=== PATIENT | female | born 1965 | race Caucasian/White ===

== ENCOUNTER 2020-08-20 06:16 | Day surgery (SDC) | payer BC, SELFPAY ==
[~2020-08-20] VITALS: Ht 177.8 cm; Wt 88.5 kg
[~2020-08-20 06:16] MED LIST: RIZA10TA21 PO
[2020-08-20] MEDS ORDERED: CEFAZOLIN SOD 1 GM in D5W 50 ML IV ONE (07:45)
[2020-08-20] MEDS ORDERED: SEVOFLURANE 15 MIN GAS INH ONE (07:50)
[2020-08-20] MEDS ORDERED: WATER FOR IRRIGATION,STERILE 1,000 ML IRRIG.SOLN IR ONE (07:50)
[2020-08-20] MEDS ORDERED: MIDAZOLAM HCL 5 MG/5 ML VIAL IVP ONE (07:50)
[2020-08-20] MEDS ORDERED: BUPIVACAINE /EPINEPHRINE/PF 0.25% 30 ML VIAL INJ ONE (07:50)
[2020-08-20] MEDS ORDERED: ONDANSETRON HCL 4 MG/2 ML VIAL IVP ONE (07:50)
[2020-08-20] MEDS ORDERED: fentaNYL CITRATE/PF 100 MCG/2 ML AMP IVP ONE (07:50)
[2020-08-20] MEDS ORDERED: PROPOFOL 200MG/ 20ML VIAL (DIPRIVAN) IV ONE (07:50)
[2020-08-20] MEDS ORDERED: KETOROLAC TROMETHAMINE 30 MG VIAL IVP ONE (07:50)
[2020-08-20] MEDS ORDERED: LR 1,000 ML IV.SOLN IV ONE (07:50)
[2020-08-20] MEDS ORDERED: HYDROmorphone 1 MG/ML INJ. CARTRIDGE IVP PRN (08:30)
[2020-08-20] MEDS ORDERED: METOCLOPRAMIDE HCL 10 MG/2 ML VIAL IVP PRN (08:30)
[2020-08-20] MEDS ORDERED: KETOROLAC TROMETHAMINE 30 MG VIAL IVP PRN (08:30)
[2020-08-20] MEDS ORDERED: OXYCODONE/ACETAMINOPHEN 5-325 TABLET PO PRN ×2 (08:45)
[2020-08-20] MEDS ORDERED: ONDANSETRON HCL 4 MG/2 ML VIAL IVP PRN (08:45)
[2020-08-20] MEDS ORDERED: HYDROcodone/ACETAMIN 5-325 MG TAB (NORCO/ VICODIN) PO PRN (08:45)
[2020-08-20 10:59] VITALS: BP_SYST 144
== END 2020-08-20 10:30 | disposition home or self-care (01) ==
LOC: SDS 06:16 → SMU 06:16 → SDS 10:30
PROVIDERS: ATTEND Specialist
DX: N75.0 Cyst of Bartholin's gland (principal); R10.2 Pelvic and perineal pain; N95.1 Menopausal and female climacteric states; Z79.899 Other long term (current) drug therapy; Z20.822 Contact with and (suspected) exposure to COVID-19
CPT/HCPCS: 36415; 56740; 87426; 88304; J0690; J1885; J2250; J2405; J2704; J3010; J3490; J7060; J7120